=== PATIENT | male | born 1980 | race African-American/Black ===

== ENCOUNTER 2022-09-30 17:45 | Emergency (ER) | payer MEDICAID, SELFPAY ==
--- NOTE | ~2022-09-30 | CT_ITS ---
EXAMINATION: CT OF THE HEAD AND CERVICAL SPINE WITHOUT CONTRAST CLINICAL INFORMATION: Trauma COMPARISON: None. TECHNIQUE: Contiguous axial imaging was performed from the vertex to the thoracic inlet, through the head and cervical spine, without intravenous administration of contrast. Coronal and sagittal reformatted images through the cervical spine were obtained on the technologists workstation. Total exam dose-length product: 763+535 mGy-cm This CT examination was performed using dose optimization techniques as appropriate, variously including the following: *Automated exposure control *Adjustment of mA and/or kV according to patient size (this includes techniques or standardized protocols for targeted exams where dose is matched to indication/reason for exam; i.e. extremities or head) *Use of iterative reconstruction technique FINDINGS: Head: No acute intracranial hemorrhage. No extra-axial fluid collection. Willard-white matter differentiation is preserved without evidence of acute large vessel territory ischemia. Symmetric, concordant ventricles and sulci; no hydrocephalus. No mass effect or midline shift. There is no abnormal attenuation within the brain parenchyma. The osseous structures and soft tissues are normal. No acute sinusitis. Cervical spine: Normal pre-vertebral soft tissues. No acute fracture seen. There is straightening of the normal cervical lordosis. There is chronic appearing deformity of C2 presumably sequelae of remote prior healed fracture. 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 Thyroid homogeneous with no nodules seen. Upper lobe paraseptal emphysema. No cervical lymphadenopathy, mass, or fluid collection. CT/CT cervical spine wo IV con IMPRESSION: No acute intracranial pathology. No acute osseous abnormality of the cervical spine. 

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
[2022-09-30 18:09] VITALS: BP 140/96; BP 146/86; PULSE 102; PULSE 92; RESP 18; TEMP 37.2; O2SAT 98; O2SAT 99; BMI 29.7
[2022-09-30 19:16] VITALS: BP 135/78; PULSE 88; RESP 17; TEMP 37.1; O2SAT 97
--- NOTE | 2022-09-30 19:16 | PC.NURSE ---
Care of patient assumed at 1900. He is found with c-collar on watching TV. He endorses neck and lower back pain, 06/02. He denies nausea, numbness,or tingling. He is able to move all extremities.
[2022-09-30] MEDS: Ibuprofen 800 MG TABLET PO (19:38)
== END 2022-09-30 19:40 | disposition home or self-care (01) ==
PROVIDERS: Emergency Provider Emergency Medicine
DX: S13.4XXA Sprain of ligaments of cervical spine, initial encounter (principal); V43.52XA Car driver injured in collision with other type car in traffic accident, initial encounter; Y93.89 Activity, other specified; Y92.410 Unspecified street and highway as the place of occurrence of the external cause; Y99.9 Unspecified external cause status
CPT/HCPCS: 70450; 72125; 99283; 99284

== ENCOUNTER 2025-09-19 15:06 | Outpatient (REF) | payer MEDICAID, SELFPAY ==
--- NOTE | ~2025-09-19 | XR_ITS ---
EXAMINATION: XR ELBOW, LEFT CLINICAL INFORMATION: left lateral epicondylitis COMPARISON: None available. TECHNIQUE: Four views of the left elbow. FINDINGS: No fracture or dislocation. No significant effusion. Alignment is anatomic. Joint spaces are maintained. No suspicious bony lesion. Small olecranon process spurring. No abnormal soft tissue calcification. XR/XR elbow LT min 3V IMPRESSION: No acute osseous findings Electronically signed by: Horacio Porras MD 09/19/2025 03:27 PM EDT
--- OUTSIDE RECORDS SUMMARY | 2025-09-19 11:00 | XMS_ITS | Encounter Summary ---
Author Organization [employer] Address [address] [place] [address] Care Team Providers Care Webmethods Consultant Name Role Phone BiancaHannah Unavailable Unavailable Reason for Visit * Reason Comments Dentures Impressions Encounter Details Date Type Department Care Team ([facility] st Contact Info) Description 09/19/2025 11:00 AM EDT Office Visit [facility] [address] [place] [address] Sahra Recinos DDS [address] [place] [address] Teeth missing (Primary Dx) Social History Tobacco Use Types Packs/Day Years Used Date Smoking Tobacco: Never Passive Smoke Exposure: Never Smokeless Tobacco: Never Alcohol Use Standard Drinks/Week Comments Never 0 (1 standard drink = 0.6 oz pur e alcohol) Sex and Gender Information Value Date Recorded Sex Assigned at Male 11/07/2023 1:39 PM EST Legal Sex Male 5:31 PM EST Gender Identity Male 11/07/2023 1:39 PM EST Sexual Orientation Straight 11/07/2023 1: 39 PM EST documented as of this encounter Progress Notes * Sahra Recinos DDS - 09/19/2025 11:00 AM EDT Patient ID: Gilbert Sosa is a 45 y.o. male. Time Out: Timeout Date: 09/19/25, Timeout Time: 1111 (Dentures impressions) Location: [facility] Tooth: Mandible Procedure: Dentures impression Verified the above with patient, language assistant, and provider. Confirmed via patient's chart, intraorally and by radiographs. Mineralogy Teacher: not applicable Chief Complaint Patient presents with Dentures Impressions Medical Hx: Vitals: There were no vitals taken for this visit. Medications, Med Hx reviewed with patient and updated in chart. Consent Obtained: The risks, benefits, indications, potential complications, and alternatives were explained to the patient and informed consent was obtained with good understanding. Treatment Provided: Dental procedures in this visit D5750.1 - DENTURE IMPRESSION (Completed) Service provider: Sahra Recinos DDS Billing provider: Sahra Recinos DDS Impression taken with [place] of Mandible Case sent to lab to set up teeth. Blue bite taken Color selected; A3 Lab used: [facility] Lab Lab Due Date: 09/26/2025 Patient discharged alert, oriented, and in stable condition. NV: Wax try-in Convex Grinder Operator: Lc Smith Dentist: Sahra Recinos DDS documented in this encounter Plan of Treatment Upcoming Encounters Date Type Department Care Team (Late st Contact Info) Description 10/03/2025 2:00 PM EST Office Visit [facility] [address] [place] [address] Sahra Recinos DDS [address] [place] [address] 10/10/2025 12:45 PM EST Office Visit [facility] [address] [place] [address] Toña Schultz Scheduled Orders Name Type Priority Associated Diagnoses Orde r Schedule DENTAL LAB FIXED Dental Routine Ordered: 09/19/2025 documented as of this encounter Procedures Procedure Name Priority Date/Time Associated Diagnosis Comments DENTURE IMPRESSION Routine 09/19/2025 11:00 AM ED T Teeth missing documented in this encounter Visit Diagnoses Diagnosis Teeth missing- Primary Acquired absence of teeth, unspecified documented in this encounter Care Teams Webmethods Consultant Relationship Specialty Start Date End Date Hannah Valenzuela Health Navigator Financial Counseling and Assistance Services 03/05/23 documented as of this encounter
--- OUTSIDE RECORDS SUMMARY | 2025-09-19 15:00 | XMS_ITS | Encounter Summary ---
Author Organization [employer] Address [address] [place] [address] Care Team Providers Care Fish Processing Supervisor Name Role Phone BiancaHannah Unavailable Unavailable Reason for Referral * Consultation (Routine) - Pending Review Specialty Diagnoses / Procedures Referred By Cristian nesbitt Referred To Contact Orthopaedic Surgery Diagnoses Left lateral epicondylitis Imtiaz Chan MD [address] [place] [phone] Phone: tel: fax: Referral ID Status Reason Start Date Expiration Date Visits Requested Visits Authorized [id number] Pending Review Specialty Services Required 09/19/2026 1 1 Reason for Visit * Reason Comments Left elbow pain Encounter Details Date Type Department Care Team (Latest Contact Info) Description 09/19/2025 3:00 PM EDT Office Visit [facility] [address] [place] [address] [phone] Imtiaz Chan MD [address] [place] [address] [phone] Left lateral epicondylitis (Primary Dx) Social History Tobacco Use Types Packs/Day Years Used Date Smoking Tobacco: Never Passive Smoke Exposure: Never Smokeless Tobacco: Never Tobacco Cessation:Counseling Given: Not Answered Alcohol Use Standard Drinks/Week Comments Never 0 (1 standard drink = 0.6 oz pur e alcohol) Sex and Gender Information Value Date Recorded Sex Assigned at Male 11/07/2023 1:39 PM EST Legal Sex Male 5:31 PM EST Gender Identity Male 11/07/2023 1:39 PM EST Sexual Orientation Straight 11/07/2023 1: 39 PM EST documented as of this encounter Last Filed Vital Signs Vital Sign Reading Time Taken Comments Blood Pressure 158/93 09/19/2025 2:50 PM EDT Pulse 79 09/19/2025 2:50 PM EDT Temperature 36.4 C (97.5 F) 09/19/2025 2:50 PM EDT Respiratory Rate 18 09/19/2025 2:50 PM EDT Oxygen Saturation 97% 09/19/2025 2:50 PM EDT Inhaled Oxygen Concentration - - Weight 78.6 kg (173 lb 3.2 oz) 09/19/2025 2:50 P M EDT Height 167.6 cm (5' 6 ) 09/19/2025 2:50 PM EDT Body Mass Index 27.96 09/19/2025 2:50 PM EDT documented in this encounter Progress Notes * Imtiaz Name, - 09/19/2025 3:00 PM EDT Subjective Patient ID: Gilbert Sosa is a 45 y.o. male who presents for Left elbow pain. Pt comes with one week of left lateral elbow pain Pain is precipitated by rotation of forearm, lifting No trauma, no swelling Works delivering for [employer] Review of Systems Constitutional: Negative for chills, fatigue and fever. HENT: Negative for sore throat. Respiratory: Negative for cough, chest tightness and shortness of breath. Cardiovascular: Negative for chest pain, palpitations and leg swelling. Gastrointestinal: Negative for abdominal pain and blood in stool. Musculoskeletal: See HPI Objective Vitals: 09/19/25 1450 BP: (!) 158/93 BP Location: Left arm Patient Position: Sitting BP Cuff Size: Adult Pulse: 79 Resp: 18 Temp: 97.5 ??F (36.4 ??C) TempSrc: Temporal SpO2: 97% Weight: 173 lb 3.2 oz (78.6 kg) Height: 5' 6 (1.676 m) Physical Exam Constitutional: Appearance: Normal appearance. Cardiovascular: Rate and Rhythm: Normal rate and regular rhythm. Pulmonary: Effort: Pulmonary effort is normal. Abdominal: Palpations: Abdomen is soft. Musculoskeletal: Right elbow: No swelling. Left elbow: No swelling. Tenderness present in lateral epicondyle. Neurological: Mental Status: He is alert. Assessment/Plan Diagnoses and all orders for this visit: Left lateral epicondylitis Comments: I suspect left lateral epicondylitis. I recommend a course of naproxen, avoid heavy lifting, referral to orthopedics, elbow x-ray prior to orthopedics evaluation Orders: - XR Elbow 3+ Views Left; Future - Referral to Orthopaedic Surgery; Future Other orders - naproxen (Naprosyn) 500 MG tablet; Take 1 tablet (500 mg) by mouth with breakfast and with evening meal for 14 days. Future Appointments Date Time Provider Department Center 10/03/2025 2:00 PM Sahra Recinos DDS [facility] 10/10/2025 12:45 PM Toña Schultz AD[facility] documented in this encounter Plan of Treatment Upcoming Encounters Date Type Department Care Team (Late st Contact Info) Description 10/03/2025 2:00 PM EST Office Visit [facility] [address] [place] [address] Sahra Recinos DDS [address] [place] [address] 10/10/2025 12:45 PM EST Office Visit [facility] [address] [place] [address] Toña Schultz Scheduled Referrals Name Type Priority Associated Diagnoses Orde r Schedule Referral to Orthopaedic Surgery Outpatient Referral Routine Left lateral epicondylitis Expected: 09/19/2025 (Approximate), Expires: 09/19/2026 documented as of this encounter Procedures Procedure Name Priority Date/Time Associated Diagnosis Comments XR ELBOW 3+ VIEWS LEFT Routine 09/19/2025 3:10 PM EDT Left lateral epicondylitis documented in this encounter Results * XR Elbow 3+ Views Left (09/19/2025 3:10 PM EDT) Anatomical Region Laterality Modality Upper Extremities, Elbow Left Radiogr aphic Imaging 09/19/2025 3:10 PM EDT Narrative 09/19/2025 3:30 PM EDT [address] [address] XRay Report Signed Patient: Gilbert Sosa MR#: [id number] 03 : 1980 Acct:[id number] Age/Sex: 45 / M ADM Date: 09/19/25 Loc: [facility] Attending Dr: Imtiaz Chan MD Ordering Physician: Imtiaz Chan MD Date of Service: 09/19/25 Procedure(s): XR elbow LT min 3V Accession Number(s): [id number] cc: Imtiaz Chan MD Reason for Exam: left lateral epicondylitis EXAMINATION: XR ELBOW, LEFT CLINICAL INFORMATION: left lateral epicondylitis COMPARISON: None available. TECHNIQUE: Four views of the left elbow. FINDINGS: No fracture or dislocation. No significant effusion. Alignment is anatomic. Joint spaces are maintained. No suspicious bony lesion. Small olecranon process spurring. No abnormal soft tissue calcification. XR/XR elbow LT min 3V IMPRESSION: No acute osseous findings Electronically signed by: Horacio Porras MD 09/19/2025 03:27 PM EDT Dictated By: Horacio Porras MD Signed By: <Electronically signed by Horacio Porras MD in OV> 09/19/25 1527 DD/ 1510 TD/TT: 09/19/25 1517 Bookkeeping Clerk: Procedure Note Donotuseinterpreter, Image - 09/19/[address] [address] XRay Report Signed Patient: Amalia SosailtonMR#: [id number] 03 : 1980Acct:[id number] Age/Sex: 45 / MADM Date: 09/19/25 Loc: [facility] Attending Dr: Imtiaz Chan MD Ordering Physician: Imtiaz Chan MD Date of Service: 09/19/25 Procedure(s): XR elbow LT min 3V Accession Number(s): [id number] cc: Imtiaz Chan MD Reason for Exam: left lateral epicondylitis EXAMINATION: XR ELBOW, LEFT CLINICAL INFORMATION: left lateral epicondylitis COMPARISON: None available. TECHNIQUE: Four views of the left elbow. FINDINGS: No fracture or dislocation. No significant effusion. Alignment is anatomic. Joint spaces are maintained. No suspicious bony lesion. Small olecranon process spurring. No abnormal soft tissue calcification. XR/XR elbow LT min 3V IMPRESSION: No acute osseous findings Electronically signed by: Horacio Porras MD 09/19/2025 03:27 PM EDT RP Dictated By: Horacio Porras MD Signed By: <Electronically signed by Horacio Porras MD in OV> 09/19/25 1527 DD/ 1510 TD/TT: 09/19/25 1517 Bookkeeping Clerk: HARRISON Imtiaz Name IMG XR PROCEDURES Final Result documented in this encounter Visit Diagnoses Diagnosis Left lateral epicondylitis- Primary documented in this encounter Care Teams Fish Processing Supervisor Relationship Specialty Start Date End Date Hannah Valenzuela Navigator Financial Counseling and Assistance Services 03/05/23 documented as of this encounter
--- OUTSIDE RECORDS SUMMARY | 2025-09-19 18:26 | XMS_ITS | Encounter Summary ---
Author Organization [employer] Address [address] [place] [address] Care Team Providers Care Office Support Assistant Name Role Phone Hannah Valenzuela Unavailable Unavailable Reason for Visit * Reason Onset Date Comments New Patient 08/20/2023 Encounter Details Date Type Department Care Team (Late Contact Info) Description 08/20/2023 Telephone [facility] [address] [place], [place] [phone] PcpElizabeth Unassigned New Patient Social History Tobacco Use Types Packs/Day Years Used Date Smoking Tobacco: Never Assessed Sex and Gender Information Value Date Recorded Sex Assigned at Male 11/07/2023 1:39 PM EST Legal Sex Male 5:31 PM EST Gender Identity Male 11/07/2023 1:39 PM EST Sexual Orientation Straight 11/07/2023 1: 39 PM EST documented as of this encounter Miscellaneous Notes * Telephone Encounter - Mark Brown - 08/20/2023 12:26 PM EDT Tc to pt, to offer [facility]RINKER appt, no answer due to pt phone not accepting any calls at this time . Wire Coiner could not leave voice mail. documented in this encounter Plan of Treatment Upcoming Encounters Date Type Department Care Team (Late Contact Info) Description 10/03/2025 2:00 PM EST Office Visit [facility] [address] [place], [place] [phone] Sahra Recinos, [place] [address] [place], [place] [phone] 10/10/2025 12:45 PM EST Office Visit [facility] [address] [place] [address] Toña Schultz documented as of this encounter Visit Diagnoses Not on filedocumented in this encounter Care Teams Office Support Assistant Relationship Specialty Start Date End Date Hannah Valenzuela Health Navigator Financial Counseling and Assistance Services 03/05/23 documented as of this encounter
--- OUTSIDE RECORDS SUMMARY | 2025-09-19 18:27 | XMS_ITS | Clinical Summary ---
Author Organization [employer] Address [address] [place] [address] 7 [place] [address] Care Team Providers Care Professor Of Sport Management Name Role Phone BiancaHannah Unavailable Unavailable Allergies No known active allergies Medications naproxen (Naprosyn) 500 MG tablet Take 1 tablet (500 mg) by mouth with breakfast and with evening meal for 14 days. 28 tablet 10/03/20 25 Active Active Problems Problem Noted Date Diagnosed Date Severe dental caries 04/29/2024 Encounters Date Type Department Care Team Description 09/19/2025 3:00 PM EDT Office Visit [facility] [address] [place] [address] Name, MD Imtiaz Left lateral epicondylitis (Primary Dx) 09/19/2025 11:00 AM EDT Office Visit [facility] [address] [place] [address] Acosta-May, Sahra, DDS Teeth missing (Primary Dx) 09/19/2025 Travel 08/22/2025 8:00 AM EDT Office Visit [facility] [address] [place] [address] Acosta-May, Sahra, DDS Dental caries (Primary Dx) 08/01/2025 9:00 AM EDT Office Visit [facility] [address] [place] [address] Carlos Tejada, DDS Dental calculus (Primary Dx) 08/01/2025 Travel 07/18/2025 8:00 AM EDT Office Visit [facility] [address] [place] [address] Sahra Recinos DDS Dental caries (Primary Dx) from Last 3 Months Social History Tobacco Use Types Packs/Day Years [...] Orientation Straight 11/07/2023 1: 39 PM EST Last Filed Vital Signs Vital Sign Reading [...] Mass Index 27.96 09/19/2025 2:50 PM EDT Plan of Treatment Upcoming Encounters Date Type Department Care Team (Late st Contact Info) Description 10/03/2025 2:00 PM EST Office Visit [facility] [address] [place] [address] Sahra Recinos DDS [address] [place] [address] 10/10/2025 12:45 PM EST Office Visit [facility] [address] [place] [address] Toña Schultz Health Maintenance Due Date Last Done Comments Depression Screening 1982 HIV Screening 1982 Lipid Panel 1982 SDOH Screening 1982 Disability Screening 1982 Alcohol/Substance Use Screening 1994 Family Planning (PISQ) 1997 HPV Vaccines (1 - Male 3-dos e series) 1997 Hepatitis C Screening 2000 DTaP/Tdap/Td Vaccines (1 - Tdap) 2001 Hepatitis B Vaccines (1 of 3 - 19+ 3-dose series) 2001 Dental Oral Exam 02/23/2025 08/24/2024 Dental Prophylaxis 03/03/2025 09/01/2024 COVID-19 Vaccine (1 - 2023-2 5 season) 2025 Influenza Vaccine (#1) 2025 Dental X-Ray: Bitewings 08/25/2025 08/24/2024 Tobacco Screening 09/19/2026 09/19/2025 Dental X-Ray: Full Mouth 08/25/2027 024, 04/08/2024 Zoster Vaccines (1 of 2) 2032 RSV Patients and Patients Aged 60 years or older (1 - 1-dose 75+ series) 2057 HIB Vaccines Aged Out No longer eligi ble based on patient's age to complete this topic Hepatitis A Vaccines Aged Out No long er eligible based on patient's age to complete this topic IPV Vaccines Aged Out No longer eligi ble based on patient's age to complete this topic Meningococcal B Vaccine Aged Out No l onger eligible based on patient's age to complete this topic Meningococcal Vaccine Aged Out No maldonado elizabeth eligible based on patient's age to complete this topic Pneumococcal Vaccine: Pediatrics (0 to 5 Years) and At-Risk Patients (6 to 49) Years Aged Out No longer eligible b ased on patient's age to complete this topic RSV under 20 months Aged Out No longe r eligible based on patient's age to complete this topic Rotavirus Vaccines Aged Out No longer eligible based on patient's age to complete this topic Procedures Procedure Name Priority Date/Time Associated Diagnosis Comments XR ELBOW 3+ VIEWS LEFT Routine 09/19/2025 3:10 PM EDT Left lateral epicondylitis DENTURE IMPRESSION Routine 09/19/2025 11 :00 AM EDT Teeth missing CASE PRESENTATION, DETAILED AND EXTENSIVE TREATMENT PLANNING Routine 08/22/2025 8:00 AM EDT 31 ALEJANDRA RESIN-BASED COMPOSITE - 2 SURF, POSTERIOR Routine 08/22/2025 8:00 AM EDT 29 DO RESIN-BASED COMPOSITE - 2 SURF, POSTERIOR Routine 08/22/2025 8:00 AM EDT CASE PRESENTATION, DETAILED AND EXTENSIVE TREATMENT PLANNING Routine 08/01/2025 9:00 AM EDT 3 LIMITED ORAL EVALUATION - PROBLEM FOCUSED Routine 08/01/2025 9:00 AM EDT CASE PRESENTATION, DETAILED AND EXTENSIVE TREATMENT PLANNING Routine 07/18/2025 8:00 AM EDT Dental caries 21 DO RESIN-BASED COMPOSITE - 2 SURF, POSTERIOR Routine 07/18/2025 8:00 AM EDT Dental caries 20 MO RESIN-BASED COMPOSITE - 2 SURF, POSTERIOR Routine 07/18/2025 8:00 AM EDT Dental caries PROPHYLAXIS - ADULT Routine 09/01/2024 1 :00 PM EDT Dental calculus Dental plaque INTRAORAL - COMPLETE SERIES OF RADIOGRAPHIC IMAGES Routine 08/24/2024 10:30 AM EDT Encounter for dental examination Dental calculus Teeth missing COMPREHENSIVE ORAL EVALUATION - NEW OR ESTABLISHED PATIENT Routine 08/24/2024 10:30 AM EDT Encounter for dental examination Dental calculus Teeth missing from Last 3 Months or Most Recently Relevant to Health Maintenance Results * XR Elbow 3+ Views Left (09/19/2025 3:10 PM EDT) Anatomical Region Laterality Modality Upper Extremities, Elbow Left Radiogr aphic Imaging 09/19/2025 3:10 PM EDT Narrative 09/19/2025 3:30 [place] [address] XRay Report Signed Patient: Gilbert Sosa MR#: [id number] [birth year] : 1980 Acct:[id number] Age/Sex: 45 / M ADM Date: 09/19/25 Loc: HO.HHCX Attending Dr: Imtiaz Chan MD Ordering Physician: Imtiaz Chan MD Date of Service: 09/19/25 Procedure(s): XR elbow LT min 3V Accession Number(s): [id number] cc: Imtiaz Chan MD Reason for Exam: [...] in OV> 09/19/25 1527 DD/ 1510 TD/TT: 09/19/251516 Certified Recreational Therapist: HARRISON Procedure Note Donotuseinterpreter, Image - 09/19/[address] [address] XRay Report Signed [facility] [id number] 03 : 1980Acct:[id number] Age/Sex: 45 / MADM Date: 09/19/25 Loc: HO.HHCX Attending Dr: Imtiaz Chan MD Ordering Physician: Imtiaz Chan MD Date of Service: 09/19/25 Procedure(s): XR elbow LT min 3V Accession Number(s): [id number] cc: Imtiaz Chan MD Reason for Exam: [...] in OV> 09/19/25 1527 DD/ 1510 TD/TT: 09/19/251516 Certified Recreational Therapist: HARRISON us Imtiaz Name IMG XR PROCEDURES Final Result from Last [address] [facility] C3 DENTAL-[facility] MEDICAID STAND ADULT Care Teams Professor Of Sport Management Relationship Specialty Start Date End Date Hannah Valenzuela Navigator Financial Counseling and Assistance Services 03/05/23
--- OUTSIDE RECORDS SUMMARY | 2025-09-19 18:27 | XMS_ITS | Encounter Summary ---
Author Organization [employer] Address [address] [place] [address] [address], [place] [address] Care Team Providers Care Optical Goods Drilling Machine Operator Name Role Phone Hannah Valenzuela Unavailable Unavailable Encounter Details Date Type Department Care Team (Latest Contact Info) Description 09/19/2025 Travel Social History Tobacco Use Types Packs/Day Years [...] PM EST documented as of this encounter Plan of Treatment Upcoming Encounters Date Type Department Care Team (Late st Contact Info) Description 10/03/2025 2:00 PM EST Office Visit [facility] [address] [place] [address] Sahra Recinos, DDS [address] [place] [address] 10/10/2025 12:45 PM EST Office Visit [facility] [address] [place] [address] Toña Schultz documented as of this encounter Visit Diagnoses Not on filedocumented in this encounter Care Teams Optical Goods Drilling Machine Operator Relationship Specialty Start Date End Date Hannah Valenzuela Health Navigator Financial Counseling and Assistance Services 03/05/23 documented as of this encounter
== END 2025-09-19 15:07 | disposition home or self-care (01) ==
LOC: HO.HHCX 15:06
PROVIDERS: Visit Provider Internal Medicine Geriatric Medicine
DX: M77.12 Lateral epicondylitis, left elbow (principal)
CPT/HCPCS: 73080

== ENCOUNTER → 2025-09-19 15:06 | Outpatient (BNV) | payer MEDICAID, SELFPAY | PROVIDERS: Visit Provider Radiology Diagnostic Ultrasound | DX: M77.12 Lateral epicondylitis, left elbow (principal) | CPT/HCPCS: 73080 ==

== ENCOUNTER 2025-10-13 15:31 | Emergency (ER) | payer MEDICAID, SELFPAY ==
[2025-10-13 15:37] VITALS: BP 134/88; PULSE 92; RESP 18; TEMP 36.6; O2SAT 97; BMI 26.6
--- NOTE | 2025-10-13 15:41 | ECG_ITS ---
Test Reason : shoulder pain Blood Pressure : */* mmHG Vent. Rate : 88 BPM Atrial Rate : 88 BPM P-R Int : 158 ms QRS Dur : 82 ms QT Int : 342 ms P-R-T Axes : 53 27 44 degrees QTcB Int : 413 ms Normal sinus rhythm Normal ECG No previous ECGs available Referred By: Walter Zarco Electronically Signed By: RENNY RUSSO
--- NOTE | 2025-10-13 15:42 | ED_ITS ---
HPI - General Adult General Chief complaint: Nausea/Vomiting/Diarrhea Stated complaint: Stomach Pain Time Seen by Provider: 10/13/25 20:09 Source: patient Mode of arrival: ambulatory Limitations: no limitations History of Present Illness ED Provider: Judah AYERS HPI narrative: 45-year-old male presents with a 2-day history of nausea, vomiting and diarrhea, nausea began approximately 2 days ago with 3 episodes of non-bloody emesis. He denies current nausea. The diarrhea began yesterday without hematochezia or melena, denies recent antibiotics or hospitalization. The patient describes abdominal cramps immediately prior to bowel movements but denies persistent abdominal pain. Denies associated fever/chills, Chest pain, shortness of breath, cough, headaches, recent sick contacts, or recent trauma. The patient reports mild chest congestion which began today. The patient also reports left distal humerus weakness which started 2 days ago (same time frame as GI illness). Describes decreased strength, stiffness, and aching pain with movement. Unable to lift his daughter and had difficulty turning a steering wheel today. 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 The patient has not taken any medication for his symptoms over the past few days. Related Data Previous Rx's ?Medication ?Instructions ?Recorded ibuprofen 800 mg tablet 800 mg PO TID PRN pain #21 t abs 09/30/22 Allergies Allergy/AdvReac Type Severity Reaction Status Date / Time No Known Allergies Allergy Verified 10/13/25 15:41 Review of Systems 2 Review of Systems: Yes all other systems are reviewed and are negative PMFSH Social History Social History Advance Directives: No Advance Directives Information Provided: No Do you have a plan to hurt others: No Plan Physical Exam ED Vital Signs: Vital Signs - 24 hr 10/13/25 15:37 Temperature 97.8 F Pulse Rate 92 Respiratory Rate 18 Blood Pressure 134/88 Pulse Oximetry 97 Oxygen Delivery Method Room Air BMI result Body Mass Index 26.6 CONSTITUTIONAL: The patient appears non-toxic, well nourished and in no acute distress. Vital signs as documented. HEAD: Atraumatic, normocephalic. EYES: EOMs grossly intact, pupils equal, conjunctiva clear, no exudate. ENT: Nares patent, no discharge. Airway patent, no audible stridor, visible mucosa is pink and moist without noted lesions. NECK: Trachea is midline, no obvious masses or gross abnormalities. CHEST: Symmetric movement, normal appearance. LUNGS: LS present and CTAB, no w/r/r. Non-labored work of breathing. CARDIAC: Regular Rhythm, S1/S2 appreciated, no murmurs, rubs or gallops. ABDOMEN: Abdomen soft and non-tender x4 quadrants, no palpable masses or organomegaly. : Deferred. EXTREMITIES: Left upper extremity demonstrates no swelling, erythema, evidence of injury, or impaired or painful range of motion. Distal CSM is intact, 2+ radial pulse. Full dexterity including opposition. Normal tone, moves all extremities spontaneously without reported pain. No obvious acute injury or deformity noted. NEURO: Alert and oriented x3, CN II-XII appear grossly intact. Cerebellar Functioning grossly intact. No obvious sensory or motor deficits. Speech clear and appropriate. PSYCH: normal affect, appropriate eye contact, fluid speech, with appropriate response to questioning. No reported suicidality or homicidality. SKIN: Warm, dry, color appropriate, normal turgor. No rashes noted. Course Course Course Narrative: RME: 45 year male presents to ED for vomiting, diarrhea without any abdominal pain. Patient states also left shoulder left arm pain without any chest pain. Labs EKG ordered Medications Administered Discontinued Medications Generic Name Dose Route Start Last Admin Trade Name Freq PRN Reason Stop Dose Admin Sodium Chloride 1,000 mls @ 999 mls/hr 10/13/25 20:30 10/13/25 21:24 Ns IV 10/13/25 21:30 Infused .Q1H1M GAYLE Infusion Medical Decision Making Medical Decision Making [facility] Narrative: 8:45 PM 10/13/2025 (Krissy AYERS): 45-year-old male presents with a 2-day history of nausea, vomiting and diarrhea, nausea began approximately 2 days ago with 3 episodes of non-bloody emesis. He denies current nausea. The diarrhea began yesterday without hematochezia or melena, denies recent antibiotics or hospitalization. The patient describes abdominal cramps immediately prior to bowel movements but denies persistent abdominal pain. Denies associated fever/chills, Chest pain, shortness of breath, cough, headaches, recent sick contacts, or recent trauma. The patient reports mild chest congestion which began today. The patient also reports left distal humerus weakness which started 2 days ago (same time frame as GI illness). Describes decreased strength, stiffness, and aching pain with movement. Unable to lift his daughter and had difficulty turning a steering wheel today. 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 The patient has not taken any medication for his symptoms over the past few days. On exam the patient is well-appearing, no evidence of acute distress, nontoxic. The patient's abdominal exam is benign, nontender, no indication for CT imaging. The patient's left arm shows no swelling, erythema, tenderness, or evidence of injury throughout. Distal CSM is intact, 2+ radial pulse, full dexterity including opposition. The patient's laboratory evaluation shows no leukocytosis, anemia, or significant electrolyte abnormality. The patient's renal function demonstrates mildly elevated BUN at 23, likely representing prerenal azotemia. There is mild transaminitis but otherwise unremarkable LFTs. The patient's troponin is negative, EKG is nonischemic. The patient's urinalysis is negative for infection. The patient's viral swabs are negative for COVID and influenza, patient is negative for strep. Due to the patient's prerenal azotemia we will provide IV fluid hydration, patient was also offered antiemetics and declined stating he was not actively nauseous. Following IV fluid hydration the patient will be discharged to follow up with PCP for further investigation of the source of his left arm symptoms. Admission/Observation Consideration of admission/observation: Escalation of care including admission/observation considered Lab Data MDM Lab Attestation statement: I reviewed the patient's lab results. 10/13/25 16:12 10/13/25 16:12 Labs: Lab Results 10/13/25 10/13/25 Range/Units 16:12 16:14 WBC 6.4 (4.8-10.8) X10*3/uL RBC 6.14 H (4.60-5.80) X10*6/uL Hgb 16.4 (14.0-18.0) g/dl Hct 50.3 (42.0-52.0) % MCV 81.9 (80.0-98.0) fL MCH 26.7 L (27.0-33.0) pg MCHC 32.6 (31.0-36.0) g/dl RDW 14.2 (11.0-16.0) % Plt Count 242 (160-400) X10*3/uL MPV 10.1 (9.4-12.4) fL Immature Gran % (Auto) 0.2 (0.0-0.4) % Neut % (Auto) 49.1 (45-73) % Lymph % (Auto) 41.4 H (20-40) % [place] % (Auto) 8.5 (2-11) % Eos % (Auto) 0.6 (0-4) % Baso % (Auto) 0.2 (0-2) % Lymph # (Auto) 2.6 (1.2-4.9) X10*3/uL [place] # (Auto) 0.5 (0.1-1.2) X10*3/uL Eos # (Auto) 0.0 (0.0-0.4) X10*3/uL Baso # (Auto) 0.0 (0.0-0.2) X10*3/uL Abs Immat Gran (auto) 0.01 (0.00-0.03) X10*3/uL Absolute Neuts (auto) 3.1 (2.0-8.3) x10*3/uL Absolute Nucleated RBC 0.000 (0.0-0.012) X10*3/uL Nucleated RBC % (auto) 0.0 (0.0-0.2) /100WBC Sodium 137 (135-145) mmol/L Potassium 4.1 (3.3-5.1) mmol/L Chloride 110 H (96-108) mmol/L Carbon Dioxide 20 L (22-29) mmol/L Anion Gap 11 L (12-20) BUN 23 H (9-16) mg/dL Creatinine 1.20 (0.5-1.4) mg/dL Estim Creat Clear Calc 71.6 Estimated GFR > 60 Random Glucose 115 (60-115) mg/dL Calcium 9.0 (8.4-10.2) mg/dL Total Bilirubin 0.4 (0.0-1.0) mg/dL AST 44 H (5-37) U/L ALT 50 H (0-40) U/L Alkaline Phosphatase 103 (39-117) U/L Troponin I High Sens < 2.7 (<3.5-35.0) ng/L Total Protein 8.0 (6.5-8.0) g/dL Albumin 4.9 (3.5-5.0) g/dL Urine Color Yellow Urine Appearance Clear Urine pH 5.5 (5.0-9.0) Ur Specific [place] 1.025 (1.005-1.025) Urine Protein Negative (Neg-Trace) mg/dL Urine Glucose (UA) Negative (Negative) mg/dL Urine Ketones Negative (Negative) mg/dL Urine Blood Small (1+) H (Negative) Urine Nitrite Negative (Negative) Ur Leukocyte Esterase Negative (Negative) Urine RBC 3-5 H (0-2) /HPF Urine WBC 0-5 (0-5) /HPF Ur Squamous Epith Cells 0-2 (0-2) /HPF Urine Bacteria None Seen (None Seen) Hyaline Casts 0-2 (0-2) /LPF COVID-19 (MACHELLE) Negative (Negative) COVID-19 Clin Com See Note Influenza Type A (CHRISTOPHER) Negative (Negative) Influenza Type B (CHRISTOPHER) Negative (Negative) Influenza A & B Note See Note S. pyogenes GrpA CHRISTOPHER Negative (Negative) Independent Interpretation I performed an independent interpretation of an: EKG ( EKG shows sinus rhythm with a rate of 88, no evidence of acute ischemia, no ST elevation, no ectopy. QTC 413. No old for comparison.) External Record Review External record reviewed: Outpatient record Discharge Plan Discharge Clinical Impression: Gastroenteritis, Dehydration Patient Disposition: Home, Self-Care Instructions: Dehydration (ED), Gastroenteritis (ED) Additional Instructions: Thank you for choosing [facility]'s Emergency Department for your care today. Thankfully your laboratory evaluation, EKG, vital signs, and exam today are reassuring, your laboratory evaluation showed mild dehydration for which you received IV fluid hydration. At this time there is no indication for admission to the hospital or continued ED observation, and it is safe to discharge you home. You should take alternating (staggered) doses of ibuprofen 600mg and Tylenol 1000mg every 4 hours as needed for any additional pain. Please stay well hydrated and get plenty of rest. Please follow up with your primary care physician for re-evaluation, additional management of your symptoms, and continued preventative care. If you do not have a primary care physician, please call the [facility] at [phone] to establish a new primary care physician. While waiting to establish your new primary care physician, you can call our [facility] at [phone] for non-emergency needs. Please return to the emergency department if you develop a severe or sudden change in your symptoms, a fever over 100.4 that does not improve with Tylenol or Ibuprofen, recurrent vomiting, or any other new or worsening symptoms or concerns. Prescriptions: No Action ibuprofen 800 mg tablet 800 mg PO TID PRN (Reason: pain) Qty: 21 0RF Stand Alone Forms: Work/School Release Interventions: ED Discharge Assessment Last Done: 10/13/25 21:46 Discharge Date/Time: 10/13/25 21:30 Print Language: Occitan
[2025-10-13 16:21] LABS: MANUAL DIFF FLAG NO
[2025-10-13 16:25] LABS: Appearance Urine Clear; Glucose Urine UA Negative (Negative); PH 5.5 (5.0-9.0); Specific Gravity - Urine 1.025 (1.005-1.025); UMIC TRIGGER UACC YES
[2025-10-13 16:25] LABS: Hematocrit 50.3 % (42.0-52.0); Hemoglobin 16.4 g/dl (14.0-18.0); Imm Gran Abs Auto 0.01 X10*3/uL (0.00-0.03); Imm Gran Pct Auto 0.2 % (0.0-0.4); Lymphocytes Absolute Auto 2.6 X10*3/uL (1.2-4.9); Mean Corpuscular HGB Conc 32.6 g/dl (31.0-36.0); Mean Corpuscular Hemoglobin 26.7 pg (27.0-33.0); Mean Corpuscular Volume 81.9 fL (80.0-98.0); NRBC Abs Auto 0.000 X10*3/uL (0.0-0.012); NRBC Pct Auto 0.0 /100WBC (0.0-0.2); Platelet Count 242 X10*3/uL (160-400); Red Blood Count 6.14 X10*6/uL (4.60-5.80); White Blood Count 6.4 X10*3/uL (4.8-10.8)
[2025-10-13 16:35] LABS: IDNOW Serial# 08D9AD1C
[2025-10-13 16:36] LABS: Strep A Nucleic Acid Negative (Negative)
[2025-10-13 16:37] LABS: Alanine Aminotransferase 50 U/L (0-40); Albumin Level 4.9 g/dL (3.5-5.0); Alkaline Phosphatase 103 U/L (39-117); Anion Gap 11 (12-20); Aspartate Amino Transferase 44 U/L (5-37); Blood Urea Nitrogen 23 mg/dL (9-16); Calcium 9.0 mg/dL (8.4-10.2); Carbon Dioxide 20 mmol/L (22-29); Chloride 110 mmol/L (96-108); Creatinine Clr Calc Pharmacy 71.6; Estimated Glomerular Filt Rate > 60; Potassium 4.1 mmol/L (3.3-5.1); Sodium 137 mmol/L (135-145); Total Protein 8.0 g/dL (6.5-8.0)
[2025-10-13 16:39] LABS: COVID-19 Test Negative (Negative); IDNOW Serial# 58CA691E
[2025-10-13 16:40] LABS: IDNOW Serial# 55D5AD1C; Influenza B2 Negative (Negative)
[2025-10-13 16:45] LABS: Troponin-I High Sensitivity < 2.7 ng/L (<3.5-35.0)
--- OUTSIDE RECORDS SUMMARY | 2025-10-13 21:09 | XMS_ITS | Clinical Summary ---
Author Organization [employer] Address [address] [place] [address] [address] [place] [address] Care Team Providers Care Cloth Hauler Name Role Phone Hannah Valenzuela Unavailable Unavailable Allergies No known active allergies Medications naproxen (Naprosyn) 500 MG tablet Take 1 tablet (500 mg) by mouth with breakfast and with evening meal for 14 days. 28 tablet 10/03/20 25 Active Problems Problem Noted Date Diagnosed Date Severe dental caries 04/29/2024 Encounters Date Type Department Care Team Description 10/03/2025 2:00 PM EST Office Visit [facility] [address] [place] [address] Acosta-May, Sahra, DDS Teeth missing (Primary Dx) 09/19/2025 3:00 PM EDT Office Visit [facility] [address] [place] [address] NameImtiaz MD Left lateral epicondylitis (Primary Dx) 09/19/2025 11:00 AM EDT Office Visit [facility] [address] [place] [address] Acosta-May, Sahra, DDS Teeth missing (Primary Dx) 09/19/2025 Travel 08/22/2025 8:00 AM EDT Office Visit [facility] [address] [place] [address] Acosta-May, Sahra, DDS Dental caries (Primary Dx) 08/01/2025 9:00 AM EDT Office Visit [facility] [address] [place] [address] Carlos Tejada DDS Dental calculus (Primary Dx) 08/01/2025 Travel 07/18/2025 8:00 AM EDT Office Visit [facility] [address] [place] [address] Sahra Recinos DDS Dental caries (Primary Dx) [...] Care Team (Late st Contact Info) Description 10/17/2025 3:30 PM EST Office Visit [facility] [address] [place] [address] Sahra Recinos DDS [address] [place] [address] Health Maintenance Due Date Last Done Comments [...] Prophylaxis 03/03/2025 09/01/2024 COVID-19 Vaccine (1 - 2024-2 6 season) 2025 Influenza Vaccine (#1) 2025 Dental X-Ray: Bitewings 08/25/2025 08/24/2024 Tobacco Screening 10/03/2026 10/03/2025 Dental X-Ray: Full Mouth 08/25/2027 024, 04/08/2024 [...] Procedure Name Priority Date/Time Associated Diagnosis Comments BITE REGISTRATION Routine 10/03/2025 2:0 0 PM EST Teeth missing XR ELBOW 3+ VIEWS LEFT Routine 09/19/2025 [...] PM EDT Narrative 09/19/2025 3:30 [place] [address] XRay Report Signed Patient: Gilbert Sosa MR#: [id number] 03 : 1980 Acct:[id number] Age/Sex: 45 / M ADM Date: 09/19/25 Loc: HO.HHCX Attending Dr: Imtiaz Chan MD Ordering Physician: Imtiaz Chan MD Date of Service: 09/19/25 Procedure(s): XR elbow LT min 3V Accession Number(s): [id number] cc: Imtiaz Chan MD Reason for Exam: [...] Porras MD in OV> 09/19/25 1527 DD/ 151 TD/TT: 09/19/25 151 Solder Technician: HARRISON Procedure Note Donotuseinterpreter, Image - 09/19/2025 [place] [address] XRay Report Signed [id number] 03 : 1980Acct:[id number] Age/Sex: 45 / MADM Date: 09/19/25 Loc: .HHCX Attending Dr: Imtiaz Chan MD Ordering Physician: Imtiaz Chan MD Date of Service: 09/19/25 Procedure(s): XR elbow LT min 3V Accession Number(s): [id number] cc: Imtiaz Chan MD Reason for Exam: [...] 09/19/25 1527 DD/ 1510 TD/TT: 09/19/25 1517 Solder Technician: HARRISON Imtiaz Chan MD IMG XR PROCEDURES Final Result from Last 3 Months Insurance [facility] C3 Member Subscriber Plan / Payer (Ef fective 2023-Present) Name:Gilbert Sosa Relation to Subscriber:Self Name:Gilbert Sosa Payer ID:Not on file Group ID:Not on file Type:Medicaid Address: [address] [facility] C3 Member Subscriber Plan / Payer (Ef fective 2023-Present) Name:Gilbert Sosa Relation to Subscriber:Self Name:Gilbert Sosa Payer ID:Not on file Group ID:Not on file Type:Medicaid Address: [address] [facility] MEDICAID STAND ADULT Care Teams Cloth Hauler Relationship Specialty Start Date End Date Hannah Valenzuela Navigator Financial Counseling and Assistance Services 03/05/23
--- OUTSIDE RECORDS SUMMARY | 2025-10-13 21:09 | XMS_ITS | Encounter Summary ---
Author Organization [employer] Address [address] [place] [address] Care Team Providers Care Medicaid Specialist Name Role Phone Hannah Valenzuela Unavailable Unavailable Reason for Visit * Reason Onset Date Comments New Patient 08/20/2023 Encounter Details Date Type Department Care Team (Late Contact Info) Description 08/20/2023 Telephone [facility] [address], [place] [phone] PcpElizabeth Unassigned New Patient Social History Tobacco [...] PM EDT Tc to pt, to offer [employer] ROASTER appt, no answer due to pt phone not accepting any calls at this time . Music Adapter could not leave voice mail. documented in this encounter Plan of Treatment Upcoming Encounters Date Type Department Care Team (Late st Contact Info) Description 10/17/2025 3:30 PM EST Office Visit [facility] [address], [place] [phone] Sahra Recinos, B[place] [address], [place] [phone] documented as of this encounter Visit Diagnoses Not on filedocumented in this encounter Care Teams Medicaid Specialist Relationship Specialty Start Date End Date Hannah Valenzuela Navigator Financial Counseling and Assistance Services 03/05/23 documented as of this encounter
[2025-10-13 21:46] VITALS: BP 134/88; PULSE 92; RESP 18; TEMP 36.6; O2SAT 97
== END 2025-10-13 21:30 | disposition home or self-care (01) ==
PROVIDERS: Physician Assistant; Emergency Provider Emergency Medicine
DX: E86.0 Dehydration (principal); K52.9 Noninfective gastroenteritis and colitis, unspecified; R11.2 Nausea with vomiting, unspecified; Z03.818 Encounter for observation for suspected exposure to other biological agents ruled out
CPT/HCPCS: 80053; 81001; 84484; 85025; 87502; 87635; 87651; 93005; 96360; 99284

== ENCOUNTER → 2025-10-13 15:41 | Outpatient (BNV) | payer MEDICAID, SELFPAY | PROVIDERS: Emergency Provider Emergency Medicine; Visit Provider Internal Medicine | DX: M25.519 Pain in unspecified shoulder (principal) | CPT/HCPCS: 93010 ==